=== PATIENT | female | born 1995 | race Two or more races ===

== ENCOUNTER 2019-01-30 16:09 | Inpatient (IN) | payer OTHER ==
[~2019-01-30] VITALS: Ht 157.5 cm; Wt 73.0 kg
[2019-02-18] MEDS ORDERED: PRENATAL TABLE1 EAC2 PO (08:59)
[2019-02-18] MEDS ORDERED: VALTREX1000 MG PO (08:59)
== END 2019-02-20 16:19 | disposition home or self-care (01) | DRG 807 ==
LOC: EDBD → LDR 02-18 06:50 → OB/GYN 02-18 06:50 → LDR 02-21 15:51
PROVIDERS: ADMIT Obstetrics & Gynecology
PROC: 10E0XZZ Delivery of Products of Conception, External Approach (ICD-10-PCS; principal; 2019-02-18)
PROC: 0UQGXZZ Repair Vagina, External Approach (ICD-10-PCS; 2019-02-18)
PROC: 10907ZC Drainage of Amniotic Fluid, Therapeutic from Products of Conception, Via Natural or Artificial Opening (ICD-10-PCS; 2019-02-18)
PROC: 3E033VJ Introduction of Other Hormone into Peripheral Vein, Percutaneous Approach (ICD-10-PCS; 2019-02-18)
PROC: 4A1HXCZ Monitoring of Products of Conception, Cardiac Rate, External Approach (ICD-10-PCS; 2019-02-18)
DX: O71.4 Obstetric high vaginal laceration alone (principal); Z37.0 Single live birth; Z3A.39 39 weeks gestation of pregnancy

== ENCOUNTER 2019-02-07 22:52 | Outpatient (CLI) | payer OTHER | END 2019-02-08 11:41 | disposition home or self-care (01) | LOC: OBS/DEL 22:52 | DX: O26.853 Spotting complicating pregnancy, third trimester (principal); Z34.03 Encounter for supervision of normal first pregnancy, third trimester ==

== ENCOUNTER 2022-09-20 12:58 | Outpatient (CLI) | payer OTHER ==
[~2022-09-20 12:58] MED LIST: PRENATAL TABLE1 EAC2 PO; VALTREX1000 MG PO
== END 2022-09-20 15:00 | disposition home or self-care (01) ==
LOC: PRENATAL 12:58
PROVIDERS: ATTEND Obstetrics & Gynecology Maternal & Fetal Medicine
DX: O36.80X0 Pregnancy with inconclusive fetal viability, not applicable or unspecified (principal); O99.019 Anemia complicating pregnancy, unspecified trimester; Z3A.14 14 weeks gestation of pregnancy

== ENCOUNTER 2022-11-15 10:52 | Outpatient (CLI) | payer OTHER | END 2022-11-15 12:04 | disposition home or self-care (01) | LOC: PRENATAL 10:52 | PROVIDERS: ATTEND Obstetrics & Gynecology Maternal & Fetal Medicine | DX: O35.9XX0 Maternal care for (suspected) fetal abnormality and damage, unspecified, not applicable or unspecified (principal); O35.3XX0 Maternal care for (suspected) damage to fetus from viral disease in mother, not applicable or unspecified; Z3A.22 22 weeks gestation of pregnancy ==

== ENCOUNTER 2023-03-14 09:00 | Inpatient (IN) | payer OTHER ==
[~2023-03-14] VITALS: Ht 160 cm; Wt 72.6 kg
[2023-03-15] MEDS ORDERED: PRENATABS RX T1 EACH PO (10:11)
== END 2023-03-17 17:00 | disposition home or self-care (01) | DRG 807 ==
LOC: OB/GYN 09:00 → LDR 03-15 05:10 → OB/GYN 03-15 05:10
PROVIDERS: Student in an Organized Health Care Education/Training Program; ADMIT Obstetrics & Gynecology; ATTEND Obstetrics & Gynecology
PROC: 10E0XZZ Delivery of Products of Conception, External Approach (ICD-10-PCS; principal; 2023-03-15)
PROC: 4A1HXCZ Monitoring of Products of Conception, Cardiac Rate, External Approach (ICD-10-PCS; 2023-03-15)
DX: O80 Encounter for full-term uncomplicated delivery (principal); Z37.0 Single live birth; Z3A.39 39 weeks gestation of pregnancy; Z20.822 Contact with and (suspected) exposure to COVID-19